=== PATIENT | female | born 1955 | race Caucasian/White ===

== ENCOUNTER 2025-01-26 12:56 | Emergency (ER) | payer MEDICARE, SELFPAY ==
--- OUTSIDE RECORDS SUMMARY | 2025-01-26 12:58 | XMS_ITS | Continuity of Care Document ---
Author Organization Catalina campover[facility] Address [address] [facility] [place] [address] Phone Care Team Providers Care Midlevel Provider Name Role Phone TARA Novak APRN, Paula Unavailable Unavailab le Allergies, Adverse Reactions, Alerts Substance Reaction Status Criticality Sulfa (Sulfonamide Antibiotics) Active No Information Medications Medication Instructions Dosage Effective Dates (start - stop) Status Comments metoprolol succinate ER 25 mg tablet,extended release 24 hr take 1 tablet by oral route every day 25 MG - Active alprazolam 0.25 mg tablet take 1 tablet by oral route at bedtime as needed for insomnia - Active Procedures Procedure Date PPS SUBSEQ ANNUAL WELLNESS VISIT 2022 [place] ASSESS- DOCD LE1YR ADVANCE CARE PLAN TALK DOCD MEDICATION REVIEW AMOUNT PAIN NOTED NONE PRSNT FXNL STATUS ASSESSED SCREENING CLINICAL DEPRESSION COGNIT ASSESSED AND REVIEWED ESTABLISHED PATIENT EXPANDED PROBLEM Jul NEW PATIENT DETAILED Advance Directives Directive Yes / No Effective Date File Name No Information Encounters Encounter Description Practice Location Reason(s) For Visit Diagnoses Date Provider Providers Copied on Encounter Catalina rao, [address], [place], [place], [id number] , [place] tel:[phone] NICOLE Menezes Primary No Information 3 TARA Novak. [address] [facility], [facility] [address], [address], [place], [place], [id number], [place]. tel:[phone] Catalina rao, [address] [place] [address], [id number] , tel: [phone] [facility] medicare preventive (chief complaint)Chavira bjective (chief complaint) Body mass index (BMI) 25.0-25.9, adultMedicare annual wellness visit, subsequentVitami n D deficiency, unspecifiedAtria l arrhythmiaFamili al hypercholesterol emiaOsteoarthrit is 3 TARA Novak. [facility]5 [facility] 3, [address] [place] [address], [id number], . [phone] Referring Provider: Jacinto Austin, [address] [place] [address] 3, [address], [facility]. tel:[phone] ESTABLISHED PATIENT EXPANDED PROBLEM [facility] [employer], [address] [place] [address], [id number] , tel: [phone] [facility] Evaluation gluten intolerance (chief complaint)Chavira bjective (chief complaint) Body mass index (BMI) 23.0-23.9, adultBloatingIns omnia, unspecified type 1 TARA Novak. [facility]5 [facility] 3, [address] [place] [address], [id number], [place]. tel:[phone] Referring Provider: Jacinto Austin, [facility]5 [facility] 3, [address] [place] [address], [facility]. tel:[phone] Catalina Vance s, [address] [place] [address], [id number] , tel: [phone] [facility] Vitamin D deficiency, unspecified 1 TARA Novak. [facility] 3, [address] [place] [address], [id number], . tel:[phone] NEW PATIENT DETAILED Catalina Vance [facility], [address] [place] [address], [id number] , [place] tel: [phone] [facility] New to establish (chief complaint)chavira bjective (chief complaint) Body mass index (BMI) 22.0-22.9, adultFatigueLyme disease, unspecifiedOsteo arthritisAtrial arrhythmiaFamili al samantha dawnia TARA Novak. [address] [facility], [facility] 3, [address], [place], [place], [id number], . tel:[phone] Referring Provider: Jacinto Austin, [address] [facility] 3, [address], [place], [address]. tel:[phone] Family History Family Member Type Diagnosis Age At Onset Son Problem (finding) Alive and well Son Problem (finding) Alive and well Mother Problem (finding) colon cancer, CHF, COPD (Cause Of ) Father Problem (finding) anal melanoma (Cause Of ) Daughter Problem (finding) Alive and well Payers Payer name Insurance type Covered republican ID Authoriza tion(s) No Information Social History Type Description Quantity Date Captured Comments Sex Female Smoking Status No Information Sexual Orientation Choose not to disclose Gender Identity Female Chief Complaint And Reason For Visit No Information Reason For Referral Reason For Referral No Information Plan Of Treatment Date Type Action Status Goal Form for Advanced Directives due Goal Depression scree rico. Due on due Goal Annual Care Visit. Due on due Goal Cognitive assess ment. Due on due Goal Lifestyle education regardin g diet completed Goal Prevnar 13. Due on 21 due Goal Annual Care Visit. Due on due Goal Mammogram. Due on due Goal Zoster vaccine. Due on due Goal DEXA Scan. Due on 1 due Goal Depression scree rico. Due on due Goal Cognitive assess ment. Due on due Goal Pneumococcal vac cine. Due on due Goal FOBT. Due on due Goal Influenza vaccine. Due on due Goal Form for Advance d Directives. Due on due Goal Tdap. Due on due Goal Colonoscopy. Due on due Goal Lifestyle education regardin g diet completed Goal Depression scree rico. Due on due Goal Annual Care Visit. Due on due Goal Mammogram. Due on due Goal Influenza vaccine. Due on due Goal Pneumococcal vac cine. Due on due Goal DEXA Scan. Due on due Goal Form for Advance d Directives. Due on due Goal Colonoscopy. Due on due Goal FOBT. Due on due Goal Tdap. Due on due Goal Cognitive assess ment. Due on due Goal PAP_65-85 yrs old. Due on due Goal Zoster vaccine. Due on due Goal Prevnar 13. Due on due Goal Prevnar 13. Due on due Goal Zoster vaccine. Due on due Goal PAP_65-85 yrs old. Due on due Goal Pneumococcal vac cine. Due on due Goal FOBT. Due on due Goal Annual Care Visit. Due on due Goal Depression scree rico. Due on due Goal Cognitive assess ment. Due on due Goal Tdap. Due on due Goal Colonoscopy. Due on 021 due Goal Influenza vaccine. Due on due Goal Form for Advance d Directives. Due on due Goal DEXA Scan. Due on due Goal Mammogram. Due on due Goal Lifestyle education regardin g diet completed Future Order: Lab Order CBC W/O DIFF ([id number]), Sent on: Sent Future Order: Lab Order C-Reacti ve Protein ([id number]), Sent on: Sent Future Order: Lab Order CMP ([id number]), S ent on: Sent Future Order: Lab Order Lipid Pa estephania ([id number]), Sent on: Sent Future Order: Lab Order TSH Rfx on Abnormal to Free T4 ([id number]), Sent on: Sent Future Order: Lab Order Vitamin D, 25-Hydroxy ([id number]), Sent on: Sent History Of Present Illness Encounter Date Complaint History Of Prese nt Illness Shakila Fernandez comes in today for her wellness exam. She scored 0 on the PHQ-9 scale and does not feel she has any depression. She is very active. Currently she denies any pain. Her balance is good. She has not had any falls. She is able to perform her ADLs.Her hearing is good. She scored 30 out of 30 on the Mini-Mental exam and does not feel she has problems with her memory.She denies any change in her bowel or bladder habits. She denies urinary incontinence.She has a living will and would want CPR. Her would make decisions on her behalf.She is under a great deal of stress. She and her are getting ready to move and she is having her family come down within the next week. She has had an upper respiratory infection for the past week and now it starting to settle in her chest. She is prone to pneumonia. She did a COVID swab and it was negative. Her oxygen saturation is 98% and her lungs are clear to auscultation. Currently she has a loose cough. Her blood pressure is elevated today. Normally it is controlled. She is not sure if it is from being ill or the drive on [employer]. She will check it at home as her blood pressure is normally controlled. medicare preventive Evaluation gluten intolerance Shakila Fernandez comes in today for a couple of reasons. For years she has had issues with GI complaints if she is eating wheat. For the most part she tries to avoid it. She is now wondering if she does have celiac. She will have abdominal discomfort with bloating and nausea. There is no vomiting. She is prone to constipation and has been told she has leaky gut. She is due for colonoscopy and is planning to go to [place] in the spring and may be moving there. Her weight is stable. She denies any reflux or indigestion.Since moving to [place], she has been having problems with insomnia. She is taken one of her husbands Xanax and slept very well. She is wondering if she could have a prescription. We told her this is a high risk medication and increases her risk of dementia and falls. She is only wanting a few pills. New to establish shakila Fernandez comes in to establish as a new patient. Her is our patient and recommended the practice. She recently moved here from [place]. She and her are going to live here part-time and in [place] part-time. She is going back to [place] and will establish care there and that is where she is planning to have her mammogram and colonoscopy.She has a past medical history of osteoarthritis and bilateral hip replacements. She has a history of atrial arrhythmias and has been on metoprolol since she was in her 20s. It is well controlled. She states she does not have hypertension. She has a history of Lyme disease and is treating it with alternative medicine. She is having some fatigue and myalgia but otherwise is doing well. Functional Status Date Functional Assessmen t No Information Instructions Date Instruction Additional Infor sarah She is going to work on better diet and portion control. Her weight has increased by 13 pounds. Her BMI is 25. She is working on weight loss.She is going to check her blood pressure at home to make sure it remains controlled. She is to continue metoprolol succinate ER 25 mg daily. We will see her back within a month if her blood pressure remains elevated. She lives in [place] and it is difficult for her to get here. If her blood pressure is controlled, we will see her back in 6 months.She is due for blood work and was given a prescription for CBC, CMP, lipids, TSH, vitamin D, and C-reactive protein. She has been having a lot of arthritis in her joints and wanted to check an inflammatory marker.She refuses mammogram.She refuses vaccinations.She refuses colonoscopy. Related to Body mass index (BMI) 25.0-25.9, adult Lifestyle education regarding di et Related to Body mass index [BMI] 25.0-25.9, adult We will send her for blood work for celiac disease. She was told that endoscopy is the gold standard for diagnosis. She is going to be seeing a manager motor in [place] for colonoscopy and she was counseled that they should include endoscopy as well.She was told that the treatment for celiac is avoiding the offending foods. She has been doing this but wanted to know if she in fact had celiac.She was given a prescription for Xanax 0.25 mg to take infrequently for insomnia. She was told this is a high risk medication and she is only going to take it infrequently. We put her name through [employer] and she is not received controlled substances from other providers.We will see her in follow-up if she has any problems. She is going to [place] in the spring and may be moving there. Related to Body mass index (BMI) 23.0-23.9, adult Lifestyle education regarding di et Related to Body mass index [BMI] 23.0-23.9, adult She is to continue m etoprolol succinate ER 25 mg daily for the atrial arrhythmia. It is controlled.She is wanting blood work and was given a prescription for CBC, CMP, lipids, TSH, she is wanting sed rate and CRP to be added, and we will check vitamin D level.She will send us a copy of her colonoscopy and mammogram when they are performed.We will see her when she is back in town. Related to Body mass index (BMI) 22.0-22.9, adult Lifestyle education regarding di et Related to Body mass index [BMI] 22.0-22.9, adult Assessments Type Assessment Date No Information Patient Care Teams Name Effective Dates (start - stop) Status Members No Information
--- OUTSIDE RECORDS SUMMARY | 2025-01-26 12:58 | XMS_ITS | Continuity of Care Document ---
Author Organization [employer] Address [address] [address] Phone Care Team Providers Care Ski Lift Operator Name Role Phone Scarlet TARA SHAFER Elsie Unavailable Unavailab le Allergies, Adverse Reactions, Alerts [...] bedtime as needed for insomnia - Active azithromycin 250 mg tablet take 2 tablet by oral route every day for 1 day then 1 tablet (250 mg) by oral route once daily for 4 days 500 MG - No Longer Active metoprolol succinate ER 25 mg tablet,extended release 24 hr take 1 tablet by oral route every day 25 MG - No Longer Active needs apt for any additional refills Procedures Procedure Date PPS SUBSEQ ANNUAL WELLNESS VISIT 2022 [place] ASSESS- DOCD LE1YR ADVANCE CARE PLAN TALK DOCD MEDICATION REVIEW AMOUNT PAIN NOTED NONE PRSNT FXNL STATUS ASSESSED SCREENING CLINICAL DEPRESSION COGNIT ASSESSED AND REVIEWED ESTABLISHED PATIENT EXPANDED PROBLEM Jul NEW PATIENT DETAILED Advance Directives Directive Yes / No Effective Date File Name Resuscitation Attempt Resuscitation/CPR N/A N /A Other Directive , Jesse to make decisions N/A N/A WARNING:The information contained in this section is historical and is provided for information only and does not constitute a legal document or any assurance that the information is still accurate. Please verify the information with the kolb of the legal document before using it for clinical purposes. Encounters Encounter Description Practice Location Reason(s) For Visit Diagnoses Date Provider Providers Copied on Encounter [facility], [address] [place] [address], [address], [id number], tel:[phone] [facility] medicare preventive (chief complaint)Chavira bjective (chief complaint) Body mass index (BMI) 25.0-25.9, adultMedicare annual wellness visit, subsequentVita min D deficiency, unspecifiedAtr ial arrhythmiaFami lial hypercholester olemiaOsteoart hritis 3 TARA Novak. [facility]5 [facility] [place] [facility] 3, [address], [id number], . tel:[phone] Referring Provider: Jacinto Austin, [address] [place] [address] 3, [address], [address]. tel:[phone] [facility], [address] [place] [address], [id number], tel:[phone] [facility] No Information 3 TARA Novak. [address] [place] [address] 3, [address], [id number], . tel:[phone] ESTABLISHED PATIENT EXPANDED PROBLEM [facility], [address] [place] [address], [id number], tel:[phone] [facility] Evaluation gluten intolerance (chief complaint)Chavira bjective (chief complaint) Body mass index (BMI) 23.0-23.9, adultBloatingI nsomnia, unspecified type 1 TARA Novak. [address] [place] [address] 3, [address], [id number], . tel:[phone] Referring Provider: Jacinto Austin, [address] [facility] 3, [address] [place] [address], [id number]. tel:[phone] [employer], [address] [place] [address], [id number], tel:[phone] [facility] Vitamin D deficiency, unspecified 1 TARA Novak. [address] [place] [address] 3, [address], [id number], . tel:[phone] NEW PATIENT DETAILED [employer], [address] [place] [address], [facility] [address], [place], [id number], tel:[phone] [facility] New to establish (chief complaint)chavira bjective (chief complaint) Body mass index (BMI) 22.0-22.9, adultFatigueLy me disease, unspecifiedOst eoarthritisAtr ial arrhythmiaFami lial hypercholester olemia 1 TARA Novak. [facility]5 [facility] [place] [facility] 3, [address] [place] [address], [id number], [place]. tel:[phone] Referring Provider: Jacinto Austin, [facility]5 [facility] 3, [address], [address]. tel:[phone] Family History Family Member Type Diagnosis Age At Onset Daughter Problem Alive and well Mother Problem colon cancer, CHF, COPD (Cau se Of ) Son Problem Alive and well Son Problem Alive and well Father Problem anal melanoma (Cause Of Deat h) Payers Payer name Insurance type Covered constitution party ID Authoriza tion(s) No Information Social History Type Description Quantity Date Captured Comments Alcohol Use Details wine 1 glass occasionally Caffeine Use Details coffee 3 cups per day Tobacco Use Status Current non-smoker Smoking Status Never smoker Non-Smoking Tobacco Use Details : No Details Available : No Details Available Sex Female Sexual Orientation Choose not to disclose Gender Identity Female Vital Signs Date / Time: Height Weight BMI Pulse Rate Blood Pressure Temperature Respiratory Rate Body Surface Area Head Circumference Head Circ. Percentile Wt./Dimas. Percentile BMI percentile Pulse Ox Inhaled Ox 9:31 AM 67.00 in 73.663 kg (162.40 lbs) 25.4 4 kg/m eter (2) 61 /min 181/83 mm[Hg] 98.70 F 18 /min 98 % 9:46 AM 160/80 mm[Hg] Chief Complaint And Reason For Visit From encounter dated '12/03/2022 09:15'. medicare preventive (chief complaint). Description: The patient does not need help with activities of daily living. The patient is not at risk for falls. The patient has not fallen in the last year. The fall(s) did not result in injury. Patient's activity level is moderate. The patient has smoke detectors, carbon monoxide detectors in the home. There is no radon in the patient's home. Patient reports using a seatbelt in vehicles. Patient reports a regular diet diet. Patient doesnot take calcium. Patient reports taking Vitamin D. Patient reports taking a multivitamin. Patient does not take folic acid. Relevant history is positive for alcohol use. Patient is a former tobacco user. Subjective (chief complaint). Description: Rebecca comes in today for her wellness exam. [...] to move and she is having her familycome down within the next week. She has [...] from being ill or the drive on [employer]. She will check it at home as her blood pressure is normally controlled. Reason For Referral Reason For Referral No Information Plan Of Treatment Date Type Action Status Goal Form for Advanced Directives due Goal Depression scree rico. Due on due Goal Annual Care Visit. Due on due Goal Cognitive assess ment. Due on due Goal Lifestyle education regardin g diet completed Goal Prevnar 13. Due on 21 due Goal DEXA Scan. Due on due Goal Depression scree rico. Due on due Goal Annual Care Visit. Due on due Goal Cognitive assess ment. Due on due Goal Pneumococcal vac cine. Due on due Goal FOBT. Due on due Goal Influenza vaccine. Due on due Goal Form for Advance d Directives. Due on due Goal Tdap. Due on due Goal Colonoscopy. Due on 021 due Goal Mammogram. Due on due Goal Zoster vaccine. Due on due Goal Lifestyle education regardin g diet completed Goal Depression scree rico. Due on due Goal Annual Care Visit. Due on due Goal Mammogram. Due on due Goal DEXA Scan. Due on due Goal Form for Advance d Directives. Due on due Goal Influenza vaccine. Due on due Goal Colonoscopy. Due on due Goal FOBT. Due on due Goal Tdap. Due on due Goal Cognitive assess ment. Due on due Goal Pneumococcal vac cine. Due on due Goal PAP_65-85 yrs old. Due on due Goal Zoster vaccine. Due on due Goal Prevnar 13. Due on due Goal Mammogram. Due on due Goal Annual Care Visit. Due on due Goal Depression scree rico. Due on due Goal Prevnar 13. Due on due Goal Zoster vaccine. Due on due Goal PAP_65-85 yrs old. Due on due Goal Pneumococcal vac cine. Due on due Goal Cognitive assess ment. Due on due Goal Tdap. Due on due Goal FOBT. Due on due Goal Colonoscopy. Due on due Goal Influenza vaccine. Due on due Goal Form for Advance d Directives. Due on due Goal DEXA Scan. Due on due May-06-2021 Goal Lifestyle education regardin g diet completed Future Order: Lab Order CBC W/O DIFF ([id number]), Sent on: Sent Future Order: Lab Order C-Reacti ve Protein ([id number]), Sent on: Sent Future Order: Lab Order CMP ([id number]), S ent on: Sent Future Order: Lab Order Lipid Pa estephania ([id number]), Sent on: Sent Future Order: Lab Order TSH Rfx on Abnormal to Free T4 ([id number]), Sent on: Sent Future Order: Lab Order Vitamin D, 25-Hydroxy ([id number]), Sent on: Sent History Of Present Illness [...] from being ill or the drive on [employer]. She will check it at home as [...] colonoscopy and is planning to go to [place] in the spring and may be moving there. Her weight is stable. She denies any reflux or indigestion.Since moving to [place], she has been having problems with insomnia. [...] the practice. She recently moved here from [place]. She and her are going to live here part-time and in [place] part-time. She is going back to [place] and will establish care there and that [...] well. Functional Status Date Functional Assessmen t Pain Score 0/10 No impairments (SN ED-CT: [id number]). Instructions Date Instruction Additional Infor sarah She [...] blood pressure remains elevated. She lives in [place] and it is difficult for her to [...] She is going to be seeing a prize jacker in [place] for colonoscopy and she was counseled that [...] it infrequently. We put her name through [employer] and she is not received controlled substances from other providers.We will see her in follow-up if she has any problems. She is going to [place] in the spring and may be moving [...] [BMI] 22.0-22.9, adult Assessments Type Assessment Date assessment Body mass index (BMI) 25.0-25.9, adult assessment Medicare annual wellness visit, subsequent assessment Vitamin D deficiency, unspecifie d assessment Atrial arrhythmia assessment Familial hypercholesterolemia Ja assessment Osteoarthritis Mental Status Date Cognitive Assessment Orientation - [place] ed to time, place, person, situation.Mini Mental Score - 30 Patient Care Teams Name Effective Dates (start - stop) Status Members No Information
[2025-01-26 13:02] VITALS: BP 161/82; PULSE 55; RESP 16; TEMP 37.1; O2SAT 98; BMI 27.6
--- NOTE | 2025-01-26 13:11 | ED_ITS ---
HPI - Extremity Injury (Lower) General Time Seen by Provider: 13:11 Date Seen: 01/26/25 Chief Complaint: Extremity Pain/Injury, Lower Stated Complaint: hip/leg pain Time Seen by Provider: 01/26/25 13:11 Source: patient and RN notes reviewed Mode of arrival: ambulatory Limitations: no limitations History of Present Illness HPI Narrative: Rebecca is a 69-year-old female with bilateral hip replacement, history of atrial fibrillation, hypertension and fibromyalgia as well as chronic Lyme disease who comes to the emergency room for evaluation of increasing left hip pain. Rebecca has had bilateral hip replacement. Her left hip was replaced 20 years ago and her right hip 15 years ago. Three years ago while in floor that she states that she was doing some gardening and felt something pop in her left hip. She followed up with Orthopedics because she had continued pain and was told from x- rays that it appeared that things were getting loose and that this would p robably worsen. She was told that she would know when it was time to have the hip looked at and redone. Unfortunately, she has had increasing discomfort over the past weeks and especially increasing over the past 4 days. She notes that it is even getting difficult to walk. She also feels as if her left thigh is swollen. She also thinks her ankle is swollen on the left. She describes the pain as in her lower posterior buttock but also on the lateral side and even into the groin with movement. She notes that she has been doing reading on gluteal tendinopathy. She feels that this may be secondary to hormonal changes and a 20 lb weight gain over the past few years. She is also concerned about underlying infection as she has had problems with infection in the past. She describes chronic Lyme and the challenges of finding a physician who can take care of that for her in the area. She notes that she has looked into some physicians in [place] who are specialists in this category. She is wondering about a CT to look at her hip. Her plan is to go to [facility] for any further care. Rebecca has not flown recently, has no history of DVT, no shortness of breath. Currently patient does IV treatments of glutathione at home. Related Data Home Medications ?Medication ?Instructions ?Recorded ?Confirmed metoprolol succinate 25 mg 25 mg PO QDAY 04/21/23 06/21/24 tablet,extended release 24 hr Previous Rx's ?Medication ?Instructions ?Recorded cetirizine 10 mg tablet (Zyrtec) 10 mg PO QDAY PRN allergy symptoms 06/21/24 #90 tabs fluconazole 150 mg tablet 150 mg PO Q3D 3 days #3 tabs 06/21/24 Allergies Allergy/AdvReac Type Severity Reaction Status Date / Time Sulfa (Sulfonamide Allergy Mild Itchiness Verified 06/21/24 10:07 Antibiotics) Review of Systems Status of ROS: Reports: 6 or more systems reviewed and unremarkable except as noted in History and below Const: Reports: change in weight; Denies: fever or chills Resp: Denies: cough GI: Denies: vomiting : Denies: painful urination Musculo: Reports: joint pain; Denies: back pain PFSH PFSH Medical History Lyme disease ?A69.20 - Lyme disease, unspecified (ICD-10) Surgical History History of bilateral total hip arthroplasty ?Z96.643 - Presence of artificial hip joint, bilateral (ICD-10) Family History Father Melanoma Social History Narrative: Divorces. Retired. 3 children. Formally exercises. Alcohol, 3 servings per week. No illicit drug use. Smoking Status: Never smoker How often do you have a drink containing alcohol: monthly or less AUDIT-C Alcohol total score: 1 Non-prescribed substance use: denies use Exam Narrative: Exam Narrative: Alert and oriented. Very well-spoken. No acute distress. No respiratory distress, mentating and speaking normally. Examination of the left hip shows tenderness in the posterior aspect of the lower buttock, to a lesser extent along the posterior aspect of the greater trochanter. I do appreciate increased size of the thigh on the distal internal area but note no significant calf swelling tenderness erythema or evidence of cellulitis. Distally sensation and motor is intact with good dorsiflexion and plantar flexion of the great toe ankles. DTRs 2+ bilaterally at the knees. Straight leg raise does not seem to bother hip. Internal rotation of the hip increases discomfort. No pain with palpation down the lumbar spine sacrum or into the sciatic notch bilaterally. Const: Vital Signs, click to edit/add: Vital Signs - 24 hr 01/26/25 13:02 Temperature 98.7 F Pulse Rate [Pulse Oximeter] 55 L Respiratory Rate 16 Blood Pressure [Ri ght Upper Arm] 161/82 H Pulse Oximetry 98 Oxygen Delivery Me thod Room Air Documenting provider has reviewed patient's vital signs: yes Course Course ED Course: Differential diagnosis includes but is not limited to occult fracture, loosening of orthopedic hardware, musculoskeletal pain, radiculopathy. Given patient's ongoing symptoms for 3 years now worsening I would argue against this being a neuropathy. DVT is considered patient has not had any recent surgery, recent travel, no calf discomfort and pain has been ongoing for quite some time. At this time will start with plain x-rays of the left hip and pelvis. Patient did express concern regarding infection. She has not had fever or chills or night sweats. I would not normally order blood work in this situation but have offered it to her although I stated that I would not be treating her Lyme disease. She had noted that Lyme ?eats red blood cells?. I would need to refer her to a specialist as her case seems very complicated. She has declined any blood work at this time. Vital Signs Vital signs: Initial Vital Signs Temperature 98.7 F 01/26/25 13:02 Temperature Source Temporal Artery Scan 01/26/25 13:02 Pulse Rate 55 L 01/26/25 13:02 Respiratory Rate 16 01/26/25 13:02 Blood Pressure 161/82 H 01/26/25 13:02 Blood Pressure Mean 108 H 01/26/25 13:02 Pulse Oximetry 98 01/26/25 13:02 Oxygen Delivery Method Room Air 01/26/25 13:02 Vital Signs Temperature 98.7 F 01/26/25 13:02 Pulse Rate 55 L 01/26/25 13:02 Respiratory Rate 16 01/26/25 13:02 Blood Pressure 161/82 H 01/26/25 13:02 Pulse Oximetry 98 01/26/25 13:02 Oxygen Delivery Method Room Air 01/26/25 13:02 Temperature 98.7 F 01/26/25 13:02 Pulse Rate 55 L 01/26/25 13:02 Respiratory Rate 16 01/26/25 13:02 Blood Pressure 161/82 H 01/26/25 13:02 Pulse Oximetry 98 01/26/25 13:02 Oxygen Delivery Method Room Air 01/26/25 13:02 MDM - Extremity Injury (Lower) MDM Narrative Medical decision making narrative: 1. Left hip pain-suggest referral to Orthopedics either [facility] are our own [facility]. Phone number is given as well as written copy of the x-ray of port and DVD copy of the images. Rebecca declines any pain medications stronger than ibuprofen which she is already taking. I did have the pleasure of speaking with orthopedic OWEN Bueno who does suggest that this patient likely needs a 3 phase bone scan. This is not something we would be able to do through the emergency room. However, I do inform patient of our conversation with orthopedics. 2. Disposition-home at this time. Return for worsening symptoms and as needed, especially fever, chills, vomiting and as needed. Dictation done with voice recognition, and as a result, wrong word or [id number] substitutions may have occurred.? There may be errors in the script that have gone undetected.? Please consider this when interpreting information found in this chart. Medical Records Attestation: I reviewed the patient's medical records. Imaging Data Left hip x-ray: Attestation: I have reviewed the pertinent imaging results. My impression: I do not note any acute abnormalities. Radiologist's impression: Three views of the hip FINDINGS/IMPRESSION: Bilateral hip arthroplasties. Normal alignment no fractures no hardware complications seen. Discharge Plan Discharge Clinical Impression: Hip pain, left Patient Disposition: Home, Self-Care Condition: Unchanged Additional Instructions: Suggest follow-up with either [facility] as you had previously stated or [facility] for further evaluation and ordering of three-phase bone scan. A copy of your x-rays as well as the written report are available for you to take home today Seek medical attention for unusual fever, vomiting, weight loss and as needed. [facility] can be contacted at [phone]. Suggest taking the 1st appointment with either a physician or the physician contract administrative assistant. Return as needed Prescriptions: No Action fluconazole 150 mg tablet 150 mg PO Q3D 3 Days Qty: 3 2RF Rx Instructions: may repeat second dose 72 hrs after first dose if symptoms persist, and may repeat x 3 cetirizine [Zyrtec] 10 mg tablet 10 mg PO QDAY PRN (Reason: allergy symptoms) Qty: 90 3RF metoprolol succinate 25 mg tablet extended release 24 hr 25 mg PO QDAY Follow Up/Referrals: Provider,Not a Local [Primary Care Provider] - Stand Alone Forms: [employer]ever Info Instructions
--- NOTE | 2025-01-26 13:23 | CRLHL7_ITS ---
For Patients: As a result of the Cures Act, medical imaging exams and procedure reports are released immediately into your electronic medical record. You may view this report before your referring provider. If you have questions, please contact your health care provider. INDICATION: Left hip pain TECHNIQUE: Three views of the hip FINDINGS/IMPRESSION: Bilateral hip arthroplasties. Normal alignment no fractures no hardware complications seen. Dictated by Ina Adan MD @ 01/26/2025 2:43:49 PM (Electronically Signed)
--- OUTSIDE RECORDS SUMMARY | 2025-01-26 13:42 | XMS_ITS | Continuity of Care Document ---
Author Organization [facility] Address [address] [facility] [address] [place] [address] Phone Care Team Providers Care Crusher And Blender Operator Name Role Phone TARA Novak APRN, Paula [...] Providers Copied on Encounter Catalina rao, [address], [place], [place], [id number] , [place] tel:[phone] NICOLE Menezes Primary No Information 3 TARA Novak. [address] [facility], [facility] [address], [address], [place], [place], [id number], [place]. tel:[phone] Catalina rao, [address] [place] [address], [id number] , tel: [phone] [facility] medicare preventive (chief complaint)Chavira bjective (chief complaint) Body mass index (BMI) 25.0-25.9, adultMedicare annual wellness visit, subsequentVitami n D deficiency, unspecifiedAtria l arrhythmiaFamili al hypercholesterol emiaOsteoarthrit is 3 TARA Novak. [facility] [address], [address] [place] [address], [id number], . tel:[phone] Referring Provider: Jacinto Austin, [address] [place] [address] 3, [address], [facility]. tel:[phone] ESTABLISHED PATIENT EXPANDED PROBLEM Catalina Data Modeling Architect s, [address] [place] [address], [id number] , tel: [phone] [facility] Evaluation gluten intolerance (chief complaint)Chavira bjective (chief complaint) Body mass index (BMI) 23.0-23.9, adultBloatingIns omnia, unspecified type 1 TARA Novak. [facility] [address], [address] [place] [address], [id number], [place]. tel:[phone] Referring Provider: Jacinto Austin, [facility] 3, [address] [place] [address], [facility]. tel:[phone] Catalina Vance s, [address] [place] [address], [id number] , tel: [phone] [facility] Vitamin D deficiency, unspecified 1 TARA Novak. [facility] [address], [address] [place] [address], [id number], . tel:[phone] NEW PATIENT DETAILED Catalina Vance s, [address] [place] [address], [id number] , [place] tel: [phone] [facility] New to establish (chief complaint)chavira bjective (chief complaint) Body mass index (BMI) 22.0-22.9, adultFatigueLyme disease, unspecifiedOsteo arthritisAtrial arrhythmiaFamili al samantha dawnia TARA Novak. [address] [facility], [facility] [address], [address], [place], [place], [id number], . tel:[phone] Referring Provider: Jacinto Austin, [address] [facility], [address], [place], [address]. tel:[phone] Family History Family Member Type Diagnosis Age At Onset Son Problem (finding) Alive and well Son Problem (finding) Alive and well Mother Problem (finding) colon cancer, CHF, COPD (Cause Of ) Father Problem (finding) anal melanoma (Cause Of ) Daughter Problem (finding) Alive and well Payers Payer name Insurance type Covered green party ID Authoriza tion(s) No Information Social [...] Future Order: Lab Order CBC W/O DIFF ([id number]), Sent on: Sent Future Order: Lab Order C-Reacti ve Protein ([id number]), Sent on: Sent Future Order: Lab Order CMP ([id number]), S ent on: Sent Future Order: Lab Order Lipid Pa estephania ([id number]), Sent on: Sent Future Order: Lab Order TSH Rfx on Abnormal to Free T4 ([id number]), Sent on: Sent Future Order: Lab Order Vitamin D, 25-Hydroxy ([id number]), Sent on: Sent History Of Present Illness Encounter Date Complaint History Of Prese nt Illness medicare preventive Shakila Fernandez comes in today for her [...] as her blood pressure is normally controlled. Shakila Fernandez comes in today for a [...] colonoscopy and is planning to go to [place] in the spring and may be moving there. Her weight is stable. She denies any reflux or indigestion.Since moving to [place], she has been having problems with insomnia. She is taken one of her husbands Xanax and slept very well. She is wondering if she could have a prescription. We told her this is a high risk medication and increases her risk of dementia and falls. She is only wanting a few pills. Evaluation gluten intolerance shakila Fernandez comes in to establish as a new patient. Her is our patient and recommended the practice. She recently moved here from [place]. She and her are going to live here part-time and in [place] part-time. She is going back to [place] and will establish care there and that [...] and myalgia but otherwise is doing well. New to establish Functional Status Date Functional Assessmen t No [...] blood pressure remains elevated. She lives in [place] and it is difficult for her to [...] She is going to be seeing a aerodynamics engineer in [place] for colonoscopy and she was counseled that [...] it infrequently. We put her name through [employer] and she is not received controlled substances from other providers.We will see her in follow-up if she has any problems. She is going to [place] in the spring and may be moving [...]
--- OUTSIDE RECORDS SUMMARY | 2025-01-26 13:42 | XMS_ITS | Continuity of Care Document ---
Author Organization [email or web address] Address [address] [address] Phone Care Team Providers Care Lawn Sprinkler Servicer Name Role Phone Scarlet TARA SHAFER Elsie [...] Diagnoses Date Provider Providers Copied on Encounter [facility], [address] [place] [address], [address], [id number], tel:[phone] [facility] medicare preventive (chief complaint)Chavira bjective (chief complaint) Body mass index (BMI) 25.0-25.9, adultMedicare annual wellness visit, subsequentVita min D deficiency, unspecifiedAtr ial arrhythmiaFami lial hypercholester olemiaOsteoart hritis 3 TARA Novak. [facility] 3, [address], [id number], . tel:[phone] Referring Provider: Jacinto Austin, [address] [place] [address] 3, [address], [address]. tel:[phone] [facility], [address] [place] [address], [id number], tel:[phone] [facility] No Information 3 TARA Novak. [address] [place] [address] 3, [address], [id number], . tel:[phone] ESTABLISHED PATIENT EXPANDED PROBLEM [facility], [address] [place] [address], [id number], tel:[phone] [facility] Evaluation gluten intolerance (chief complaint)Chavira bjective (chief complaint) Body mass index (BMI) 23.0-23.9, adultBloatingI nsomnia, unspecified type 1 TARA Novak. [address] [place] [address] 3, [address], [id number], . tel:[phone] Referring Provider: Jacinto Austin, [address] [facility] [address], [address] [place] [address], [id number]. tel:[phone] [email or web address], [address] [place] [address], [id number], tel:[phone] [facility] Vitamin D deficiency, unspecified 1 TARA Novak. [address] [place] [address] 3, [address], [id number], . tel:[phone] NEW PATIENT DETAILED [email or web address], [address] [place] [address], [facility] [address], [place], [id number], tel:[phone] [facility] New to establish (chief complaint)chavira bjective (chief complaint) Body mass index (BMI) 22.0-22.9, adultFatigueLy me disease, unspecifiedOst eoarthritisAtr ial arrhythmiaFami lial hypercholester olemia 1 TARA Novak. [facility] 3, [address] [place] [address], [id number], [place]. tel:[phone] Referring Provider: Jacinto Austin, [facility] 3, [address], [address]. tel:[phone] Family History Family Member Type Diagnosis Age At Onset Daughter Problem Alive and well Mother Problem colon cancer, CHF, COPD (Cau se Of ) Son Problem Alive and well Son Problem Alive and well Father Problem anal melanoma (Cause Of Deat h) Payers Payer name Insurance type Covered green [...] Future Order: Lab Order CBC W/O DIFF ([id number]), Sent on: Sent Future Order: Lab Order C-Reacti ve Protein ([id number]), Sent on: Sent Future Order: Lab Order CMP ([id number]), S ent on: Sent Future Order: Lab Order Lipid Pa estephania ([id number]), Sent on: Sent Future Order: Lab Order TSH Rfx on Abnormal to Free T4 ([id number]), Sent on: Sent Future Order: Lab Order Vitamin D, 25-Hydroxy ([id number]), Sent on: Sent History Of Present Illness [...] colonoscopy and is planning to go to [place] in the spring and may be moving there. Her weight is stable. She denies any reflux or indigestion.Since moving to [place], she has been having problems with insomnia. [...] the practice. She recently moved here from [place]. She and her are going to live here part-time and in [place] part-time. She is going back to [place] and will establish care there and that [...] Pain Score 0/10 No impairments (SN ED-CT: [id number]). Instructions Date Instruction Additional Infor sarah She [...] blood pressure remains elevated. She lives in [place] and it is difficult for her to [...] She is going to be seeing a heel curver in [place] for colonoscopy and she was counseled that [...] it infrequently. We put her name through [employer] and she is not received controlled substances from other providers.We will see her in follow-up if she has any problems. She is going to [place] in the spring and may be moving [...] Mental Status Date Cognitive Assessment Orientation - [place] ed to time, place, person, situation.Mini Mental Score - 30 Patient Care Teams Name Effective Dates (start - stop) Status Members No Information
== END 2025-01-26 15:04 | disposition home or self-care (01) ==
PROVIDERS: Emergency Provider Family Medicine
DX: M25.552 Pain in left hip (principal)
CPT/HCPCS: 73502; 99283; 99284

== ENCOUNTER 2025-01-29 11:11 | Outpatient (CLI) | payer MEDICARE, SELFPAY | END 2025-01-29 11:12 | disposition home or self-care (01) | PROVIDERS: Visit Provider Physician Assistant Surgical | DX: A69.20 Lyme disease, unspecified (principal); M25.552 Pain in left hip | CPT/HCPCS: 83529; 86140 ==

== ENCOUNTER 2025-02-05 07:30 | Outpatient (CLI) | payer MEDICARE, SELFPAY ==
--- NOTE | 2025-02-05 07:30 | CRLHL7_ITS ---
For Patients: As a result of the 21st Century Cures Act, medical imaging exams and procedure reports are released immediately into your electronic medical record. You may view this report before your referring provider. If you have questions, please contact your health care provider. NM Triple Phase bone Scan: Clinical information: 69-year-old woman. History of left hip pain. Technique: Radiopharmaceutical Tc-99m MDP 24.7 mCi IV Dynamic planer images were taken of the pelvis during the arterial phase, blood pool phase, and 3 hour post-injection delayed phase. Dedicated lateral, anterior, and posterior images of the pelvis were obtained during blood pool phase. Whole-body anterior planar views were obtained in the delayed 3 hour phase. Dedicated anterior, posterior, and lateral planar views were obtained of the pelvis during the delayed 3 hour phase. Lateral views were obtained of the skull at the 3 hour delayed phase. Comparison: Hip radiographs 01/26/2025. Findings: Photopenia in the bilateral hips consistent with bilateral hip arthroplasty. No abnormality seen on arterial phase images. No abnormality seen on blood pool phase. On post-injection delayed phase images: Perihardware uptake in the bilateral hips, left greater than greater, likely reactive/inflammatory. Degenerative appearing changes in the spine, shoulders, right knee and right ankle. Excreted radiotracer in the kidneys and bladder. Impression: 1. Evidence of bilateral hip arthroplasties. 2. Perihardware uptake in the bilateral hips, left greater than right, on 3 hour delayed phase images is likely reactive/inflammatory. 3. No evidence to support hardware loosening at the bilateral hip arthroplasties. Dictated by Liu Taylor MD @ 02/05/2025 1:33:43 PM (Electronically Signed)
== END 2025-02-05 07:31 | disposition home or self-care (01) ==
PROVIDERS: Visit Provider Physician Assistant Surgical
DX: M25.552 Pain in left hip (principal); Z96.643 Presence of artificial hip joint, bilateral
CPT/HCPCS: 78315; A9503